=== PATIENT | female | born 1960 | race Caucasian/White ===

== ENCOUNTER → 2018-03-18 | Outpatient (CLI) | payer OTHER ==
[~2018-03-18] MED LIST: Aspir 8181 MG
== END | disposition home or self-care (01) ==
LOC: LAB 16:15 → LAB SHORT 16:15
PROVIDERS: Obstetrics & Gynecology
DX: Z01.419 Encounter for gynecological examination (general) (routine) without abnormal findings (principal)
CPT/HCPCS: 87624; G0123

== ENCOUNTER 2023-01-03 08:14 | Day surgery (SDC) | payer OTHER ==
[~2023-01-03] VITALS: Ht 162.6 cm; Wt 58.3 kg
[2023-01-03] MEDS ORDERED: ERGO400 (08:50)
--- NOTE | 2023-01-03 09:04 | NUR ---
01/03/23 0904 Melody Hermosillo PT TOOK SUTAB FOR BOWEL PREP WHICH IS [facility]
[2023-01-03 11:36] VITALS: BP 111/69
== END 2023-01-03 11:28 | disposition home or self-care (01) ==
LOC: ORSCSDS 08:14
PROVIDERS: Surgery
PROC: 0DBN8ZX Excision of Sigmoid Colon, Via Natural or Artificial Opening Endoscopic, Diagnostic (ICD-10-PCS; principal; 2023-01-03 09:45)
DX: Z12.11 Encounter for screening for malignant neoplasm of colon (principal); Z86.010 Personal history of colon polyps; D12.5 Benign neoplasm of sigmoid colon; K63.5 Polyp of colon; Z79.899 Other long term (current) drug therapy
CPT/HCPCS: 88305; J0330; J0461; J2001; J2405; J2704; J7120; Q9968